=== PATIENT | female | born 1950 | race Caucasian/White ===

== ENCOUNTER → 2016-10-27 | Outpatient (CLI) | payer MEDICARE, BC ==
[~2016-10-27] MED LIST: ALDACTONE PO; ASPIRINEC PO; ATIVAN PO; CALCIUM 500 + D1 TAB PO; CERTAGEN PO; LORAZEPAM0.5 MG PO; MIRALAX17 GM PO; SYNTHROID PO; SYNTHROID0.2 MG PO; TRIAMTERENE-HC1 EAC1 PO
--- NOTE | ~2016-10-27 | CO ---
Unit #: [id number] #: [id number] Patient: YAZMIN MCCORMACK [id number] [address] [address] [id number] O MR#: [id number] NAME: YAZMIN MCCORMACK ROOM: Age: 66 Sex: F Admission Date: 10/27/2016 : 1950 Attending Physician: Reddy Mondragon M.D. Primary Care Physician: No Primary Care Physician Consultation Date: 10/27/2016 CONSULTATION REPORT REASON FOR CONSULTATION Preoperative and medical evaluation prior to right total knee arthroplasty scheduled by Dr. Mondragon for November 03, 2016. HISTORY OF PRESENT ILLNESS The patient is a 66-year-old female, who presents to preprocedural screening for the reason as indicated above. Patient reports right knee pain for which she has been evaluated by Dr. Mondragon and scheduled for the above-referenced procedure. She denies chest, arm, neck, jaw pain or pressure, presyncope, syncope, dizziness, lightheadedness, palpitations, dyspnea on exertion. She denies myocardial infarction, congestive heart failure, CVA, TIA, kidney disease, and diabetes. She denies chest pain and shortness of air when climbing a flight of stairs. She has had a recent cold which she states has improved markedly over the last week. PAST MEDICAL HISTORY 1. Obesity. 2. GERD. 3. Anxiety. 4. Hypothyroidism. 5. Hypertension. 6. Sciatica. 7. Risk factors for CHARO without CHARO evaluation. PAST SURGICAL HISTORY 1. Cholecystectomy. 2. Tonsillectomy. 3. Bilateral mastectomy in 2005 and 2008 for cancer in the left breast and prophylaxis of the right breast. 4. Three bilateral foot surgeries. 5. "Nerve shot" to the back on October 01, 2016. The patient denies a personal and family history of complications to anesthesia. ALLERGIES No known medication allergies. Denies latex allergy. CURRENT MEDICATIONS 1. Triamterene/hydrochlorothiazide 37.5/25 mg cap one p.o. daily. 2. Synthroid 0.2 mg p.o. daily. 3. Lorazepam 0.5 mg p.o. daily. 4. MiraLax 17 g p.o. daily. Unit #: [id number] #: [id number] Patient: YAZMIN MCCORMACK SOCIAL HISTORY Denies tobacco use, ETOH use, and illicit drug use. FAMILY HISTORY Per review of Dr. Mondragon's office note: Hypertension in both parents. REVIEW OF SYSTEMS A one-week history of "cold" which started with sore throat, nasal congestion and postnasal drip, nonproductive cough, and fever. One-day history of diarrhea. Denies urinary frequency, dysuria, bloody urine, nausea, vomiting. Fever resolved four days ago. She has not been on antibiotic therapy. States her symptoms are markedly improved over the past week. She wants to start Mucinex D over the counter today. History of dependent edema bilateral lower extremities. A 10-point review of systems is conducted and negative except as indicated under history of present illness above. PHYSICAL EXAMINATION GENERAL: A 66-year-old female awake, alert in no acute distress. VITAL SIGNS: Temperature 97.8, heart rate 86, respiratory rate 16, blood pressure 107/62, oxygen saturation 93%. HEENT: Atraumatic, normocephalic. Sclerae anicteric. No discharge from eyes, ears, or nares. LYMPHATIC: No preauricular, postauricular, tonsillar, submental, anterior, posterior, cervical, supra or infraclavicular adenopathy. ENDOCRINE: No thyromegaly, thyroid nodules or tenderness. RESPIRATORY: Clear to auscultation all marcano bilaterally without wheezes, rhonchi, or rales. CARDIOVASCULAR: S1, S2. Regular rate and rhythm without murmur or rub. GASTROINTESTINAL: Bowel sounds positives x4, soft, nontender, nondistended. EXTREMITIES: No edema, cyanosis, or clubbing. MUSCULOSKELETAL: Strength 5/5 all extremities bilaterally to flexion extension without obvious atrophy or tenderness. NEUROLOGIC: Alert and oriented x3. Speech clear. Moves all extremities/follows commands. DIAGNOSTIC STUDIES LABORATORY: WBC 11.4, hemoglobin 13.4, hematocrit 40.5, platelet count 220,000. Sodium 139, potassium 3.4, chloride 100, CO2 of 31, glucose 112, BUN 21, creatinine 1.1, calcium 8.7. AST 30, ALT 24, alkaline phosphatase 57, bilirubin total 0.8, total protein 7, albumin 3.7. Blood type O negative. Antibody screen negative. Urinalysis: Leukocyte esterase 3+, nitrite negative, blood negative, WBC 10-25, bacteria negative, squamous cells occasional. Urine culture and sensitivity report pending at this time. MRSA nasal screen report pending at this time. IMAGING: Two-view chest x-ray report pending at this time. CARDIOVASCULAR: A 12-lead EKG: Normal sinus rhythm. Normal ECG. Confirmed report pending at this time. IMPRESSION The patient is a 66-year-old female, who presents to preprocedural screening for: 1. Preoperative medical evaluation prior to right total knee Unit #: [id number] #: [id number] Patient: YAZMIN MCCORMACK arthroplasty as scheduled by Dr. Mondragon. The patient's Johns Revised Cardiac Risk Index is equal to 0.4%. This represents the patient's perioperative risk of cardiac , fatal or nonfatal myocardial infarction, cardiopulmonary arrest, arrhythmia, and/or pulmonary edema. This has been discussed in detail with the patient and she wishes to proceed with surgery as scheduled at this time. 2. Pyuria: The patient is asymptomatic. Await urine culture and sensitivity prior to treatment with antibiotics. 3. Gastroesophageal reflux disease: The patient is on no medications. Has no complaints at this time. Will add H2 shahram postoperatively if indicated. 4. Anxiety: Stable. 5. Hypothyroidism: Will check TSH and free T4 off blood in lab today. At this point, will continue home dose of Synthroid. 6. Hypertension: Controlled. The patient has been advised that Mucinex D may result in an increase in blood pressure and that she should not overuse this medication and monitor blood pressure. She has verbalized understanding of this information. 7. Sciatica: The patient is stable without complaints. 8. Viral bronchitis: The patient is improving without antibiotics. A two-view chest x-ray report is pending at this time. 9. Hypokalemia: Likely secondary to hydrochlorothiazide. The patient has been advised to increase food sources of potassium this week. Will recheck potassium and magnesium level the a.m. of operating room. 10. Mild leukocytosis: The patient should have this rechecked prior to surgery. 11. Risk factors for obstructive sleep apnea: Consideration should be given to preoperative pulmonary evaluation and clearance secondary to risk factors per ST[facility] protocol. At this point, recommend obstructive sleep apnea protocol postoperatively. Thank you for allowing us to participate in the care of this patient. Will gladly follow the patient for postop medical management pending further recommendations by Dr. Mondragon for preop pulmonary clearance and order of Dr. Mondragon. Dictated by... Kenya Lopez A.P.R.N. for Sachin Morton/breezy TD: 10/27/2016 12:11 JOB #: [id number] CONSULTATION REPORT X Kenya Lopez BACK PAD INSPECTOR X CONSULTATION REPORT
--- NOTE | ~2016-10-27 | CR63 ---
[facility] A Service of [facility] & [facility] RADIOLOGY TEXT RESULTS PATIENT: YAZMIN MCCORMACK LOCATION: [facility] : [birth year] UNIT #: [id number] AGE: [address]: Reddy Mondragon MD SEX: F ORDER DR: [id number] [facility] [address] [place], [place] [address] [id number] O MR#: [id number] Acc #: [id number] NAME: YAZMIN MCCORMACK : 1950 SEX: F STUDY DATE/TIME: 10/27/2016 8:47 UNIT: [facility] ROOM: STUDY DESCRIPTION: CR Chest 2 View Attending Physician: Reddy Mondragon M.D. Ordering Physician: Reddy Mondragon M.D. Primary Care Physician: No Primary Care Physician MEDICAL IMAGING REPORT This report is preliminary unless electronic signature is present EXAM PA and lateral chest radiograph dated 10/27/2016. COMPARISON Examination is dated 11/17/2008. HISTORY Preop clearance right knee total arthroplasty. FINDINGS 2 views are submitted. The heart size remains normal and the lungs remain clear. Scattered calcifications are present in the lung reflecting prior granulomatous disease. CONCLUSION Stable chest. No active disease. Dictated by... Mickey Li M.D. THIS IS AN ELECTRONICALLY VERIFIED REPORT Mickey Li M.D. at 10/27/2016 5:06 PM TRAVIS/elba TD: 10/27/2016 11:42 JOB #: [id number] MEDICAL IMAGING REPORT COPY
--- NOTE | ~2016-10-27 | EKG ---
PATIENT: YAZMIN MCCORMACK UNIT #: [id number] Ventricular Rate: 68 BPM Atrial Rate: 68 BPM P-R Interval: 170 ms QRS Duration: 96 ms Q-T Interval: 422 ms QTC Calculation(Bezet): 448 ms P [place]: 51 degrees Calculated R [place]: 17 degrees Calculated T [place]: 37 degrees Diagnosis Line: Normal sinus rhythm Diagnosis Line: Normal ECG Diagnosis Line: No previous ECGs available Diagnosis Line: Confirmed by STEPHEN ALBRIGHT MD ([id number]) on Diagnosis Line: 10/28/2016 11:46:20 AM INTERPRETING MD: LEAH
[2016-10-27 09:12] LABS: URINE APPEARANCE CLEAR; URINE BILIRUBIN NEG (NEG); URINE BLOOD NEG (NEG); URINE COLOR YELLOW; URINE GLUCOSE NEG (NEG); URINE KETONE NEG (NEG); URINE LEUKOCYTE ESTERASE 3+ (NEG); URINE NITRATE NEG (NEG); URINE PROTEIN NEG (NEG); URINE SPECIFIC GRAVITY 1.013 (1.003-1.035); URINE UROBILINOGEN 0.2 MG/DL (NEG)
[2016-10-27 09:15] LABS: CULTURE INDICATED? YES; U HYALINE CASTS AUWI 0-2 /[LPF]; URINE BACTERIA AUWI NEG (NEGATIVE); URINE SQUAMOUS EPITHELIAL CELL OCC /[HPF]
[2016-10-27 09:21] LABS: URINE SOURCE CLEAN CATCH
[2016-10-27 10:05] LABS: HEMATOCRIT 40.5 % (35.0-45.0); HEMOGLOBIN 13.7 gm/dL (12.0-16.0); MEAN CELL VOLUME 87.9 FL (83-96); MEAN CORPUSCULAR HEMOGLOBIN 29.6 PG (28-34); MEAN CORPUSCULAR HGB CONC 33.7 g/dL (30-36); MEAN PLATELET VOLUME 7.9 FL (6.5-11.5); RED BLOOD COUNT 4.61 X10e (3.90-5.30); RED CELL DISTRIBUTION WIDTH 13.9 % (11.0-15.5); WHITE BLOOD COUNT 11.4 X10e3 (4.0-10.5)
[2016-10-27 10:17] LABS: PARTIAL THROMBOPLASTIN TIME 29.7 SECONDS (23.5-31.3)
[2016-10-27 11:04] LABS: ALBUMIN SERUM 3.7 g/dL (3.5-5.0); BILIRUBIN,TOTAL 0.8 mg/dL (0.2-2.0); BUN/CREATININE RATIO 19.09; CALCIUM SERUM 8.7 mg/dL (8.4-10.2); CREATININE SERUM 1.1 mg/dL (0.6-1.4); POTASSIUM 3.4 mmol/L (3.5-5.1)
[2016-10-28 12:16] LABS: THYROID STIMULATING HORMONE 0.58 uIU/ml (0.34-5.60)
[2016-10-28 12:23] LABS: FREE THYROXIN (T4) 1.17 ng/dL (0.58-1.64)
== END | disposition home or self-care (01) ==
LOC: CAMB 07:49
PROVIDERS: Nurse Practitioner; Orthopaedic Surgery
DX: Z01.818 Encounter for other preprocedural examination (principal); M17.11 Unilateral primary osteoarthritis, right knee; K21.9 Gastro-esophageal reflux disease without esophagitis; F41.9 Anxiety disorder, unspecified; E03.9 Hypothyroidism, unspecified; I10 Essential (primary) hypertension; Z79.01 Long term (current) use of anticoagulants; Z90.49 Acquired absence of other specified parts of digestive tract; Z90.13 Acquired absence of bilateral breasts and nipples; Z98.890 Other specified postprocedural states
CPT/HCPCS: 36415; 71020; 80053; 81003; 84439; 84443; 85027; 85610; 85730; 86850; 86900; 86901; 87070; 87086; 93005